=== PATIENT | female | born 1950 | race Caucasian/White ===

== ENCOUNTER → 2024-03-05 17:38 | Outpatient (REF) | payer OTHER, SELFPAY | LOC: PAVMRI 17:38 | PROVIDERS: ATTENDING PHYSICIAN Psychiatry & Neurology Neurology; FAMILY PHYSICIAN Internal Medicine | DX: H53.9 Unspecified visual disturbance (principal) | CPT/HCPCS: 70544; 70547; 70551 ==

== ENCOUNTER → 2025-02-19 14:26 | Outpatient (REF) | payer OTHER, SELFPAY | LOC: HWRAD 14:26 | PROVIDERS: ATTENDING PHYSICIAN Internal Medicine | DX: D17.21 Benign lipomatous neoplasm of skin and subcutaneous tissue of right arm (principal); R59.0 Localized enlarged lymph nodes | CPT/HCPCS: 76882 ==